=== PATIENT | female | born 2000 | race Caucasian/White ===

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

== ENCOUNTER 2020-01-21 17:21 | Emergency (ER) | payer BC, MEDICAID ==
--- NOTE | 2020-01-21 17:58 | EDM.PDOC ---
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 Denies: Chest Pain (Patient presents for evaluation of left lower abdominal pain she currently is . This would be her second she lost the first at 12 weeks with a miscarriage requiring D&C. Normal menstrual period was October, her last irregular period was November. Scheduled to get a AGRONOMY MANAGER follow-up sometime in the next month. Has noted some nausea more in the morning but has been doing well by eating healthier foods and more frequent smaller meals. No vomiting. No diarrhea, bowels are normal. No burning pain or blood in the urine. No vaginal discharge. No vaginal bleeding. Does have some pain in the urine after intercourse but no painful intercourse. No history of any STD symptoms, same partner. No fevers chills or sweats no coughing or cold symptoms no sore throat no chest pain or breathing problems. Pain is left lower quadrant/pelvic area nonradiating, has caused her to double over with pain earlier today. Lightheadedness or dizziness no fainting spell noted.), Cough, Fever/Chills, Headaches, Shortness of Breath Left Lower Abdomen Pain Score (Numeric/FACES): 7 - Related Data Allergies Allergy/AdvReac Type Severity Reaction Status Date / Time No Known Allergies Allergy Verified 01/21/20 17:37 Home Meds: Home Meds . 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 Psychiatric History: Reports: ADHD, Anxiety, Depression, Panic Attack, PTSD - Past Surgical History Female Surgical History: Reports: D&C Social & Family History - Family History Family Medical History: Noncontributory - Tobacco Use Smoking Status *Q: Former Smoker Used Tobacco, but Quit: Yes Month/Year Tobacco Last Used: 12/2019 - Caffeine Use Caffeine Use: Reports: Soda - Recreational Drug Use Recreational Drug Use: Yes Drug Use in Last 12 Months: No Recreational Drug Type: Reports: Marijuana/Hashish Recreational Drug Use Frequency: Not Used In Over 6 Months - Living Situation & Occupation Living situation: Reports: Single Occupation: Unemployed ED ROS GENERAL - Review of Systems Review Of Systems: See Below Constitutional: Denies: Fever, Chills, Diaphoresis HEENT: Denies: Rhinitis, Throat Pain Respiratory: Denies: Shortness of Breath, Cough Cardiovascular: Denies: Chest Pain, Lightheadedness, Syncope Endocrine: Denies: Fatigue GI/Abdominal: Reports: Abdominal Pain, Decreased Appetite, Nausea. Denies: Constipation, Diarrhea, Vomiting : Denies: Dysuria, Frequency, Hematuria, Urinary Retention Musculoskeletal: Denies: Muscle Pain Skin: Denies: Rash Neurological: Denies: Dizziness, Headache, Numbness, Paresthesia Psychiatric: Reports: No Symptoms Immunologic: Reports: No Symptoms ED EXAM, GI/ABD - Physical Exam Exam: See Below Exam Limited By: No Limitations General Appearance: Alert, WD/WN, No Apparent Distress Head: Atraumatic Respiratory/Chest: No Respiratory Distress, Lungs Clear, Normal Breath Sounds Cardiovascular: Normal Peripheral Pulses, Regular Rate, Rhythm, No Edema GI/Abdominal Exam: Normal Bowel Sounds, Soft, Other (Tenderness noted in the left lower quadrant/left periumbilical and pelvic area. No focal mass noted, no rebound or rigidity noted, no flank pain noted.). No: Distended, Guarding, Rebound Extremities: Normal Inspection, No Pedal Edema Neurological: Alert, Oriented Psychiatric: Normal Affect Skin Exam: Warm, Dry Course - Vital Signs Last Recorded V/S: Last Vital Signs Temp 98.5 F 01/21/20 17:31 Pulse 72 01/21/20 17:31 Resp 16 01/21/20 17:31 BP 112/63 01/21/20 17:31 Pulse Ox 100 01/21/20 17:31 - Orders/Labs/Meds Orders: Active Orders 24 hr Category Date Time Status OB Transvaginal [US] Stat Exams 01/21/20 18:09 Taken ABO/RH TYPE [BBK] Stat Lab 01/21/20 18:25 Received Labs: Laboratory Tests 01/21/20 01/21/20 01/21/20 Range/Units 18:15 18:25 18:25 WBC 9.14 (3.98-10.04) K/mm3 RBC 4.07 (3.98-5.22) M/mm3 Hgb 12.6 (11.2-15.7) gm/dl Hct 38.4 (34.1-44.9) % MCV 94.3 D (79.4-94.8) fl MCH 31.0 (25.6-32.2) pg MCHC 32.8 (32.2-35.5) g/dl RDW Std Deviation 45.4 (36.4-46.3) fL Plt Count 281 (182-369) K/mm3 MPV 9.6 (9.4-12.3) fl Neut % (Auto) 64.4 (34.0-71.1) % Lymph % (Auto) 24.8 (19.3-51.7) % [place] % (Auto) 9.7 (4.7-12.5) % Eos % (Auto) 0.8 (0.7-5.8) Baso % (Auto) 0.2 (0.1-1.2) % Neut # (Auto) 5.88 (1.56-6.13) K/mm3 Lymph # (Auto) 2.27 (1.18-3.74) K/mm3 [place] # (Auto) 0.89 H (0.24-0.36) K/mm3 Eos # (Auto) 0.07 (0.04-0.36) K/mm3 Baso # (Auto) 0.02 (0.01-0.08) K/mm3 Sodium 138 (136-145) mEq/L Potassium 4.0 (3.5-5.1) mEq/L Chloride 104 (98-107) mEq/L Carbon Dioxide 26 (21-32) mEq/L Anion Gap 12.0 (5-15) BUN 10 (7-18) mg/dL Creatinine 0.6 (0.55-1.02) mg/dL Est Cr Clr Drug Dosing 125.27 mL/min Estimated GFR (MDRD) > 60 (>60) mL/min BUN/Creatinine Ratio 16.7 (14-18) Glucose 93 (74-106) mg/dL Calcium 8.9 (8.5-10.1) mg/dL Total Bilirubin 0.2 (0.2-1.0) mg/dL AST 15 (15-37) U/L ALT 34 (14-59) U/L Alkaline Phosphatase 82 (46-116) U/L Total Protein 6.9 (6.4-8.2) g/dl Albumin 3.7 (3.4-5.0) g/dl Globulin 3.2 gm/dL Albumin/Globulin Ratio 1.2 (1-2) Lipase 83 (73-393) U/L HCG, Quant 38417.0 mIU/mL Urine Color Yellow (Yellow) Urine Appearance Clear (Clear) Urine pH 6.0 (5.0-8.0) Ur Specific [place] > or = 1.030 (1.005-1.030) Urine Protein Negative (Negative) Urine Glucose (UA) Negative (Negative) Urine Ketones Negative (Negative) Urine Occult Blood Negative (Negative) Urine Nitrite Negative (Negative) Urine Bilirubin Negative (Negative) Urine Urobilinogen 0.2 (0.2-1.0) Ur Leukocyte Esterase Negative (Negative) Urine RBC 0-5 (0-5) /hpf Urine WBC 0-5 (0-5) /hpf Ur Squamous Epith Cells 10-20 H (0-5) /hpf Urine Bacteria Few (FEW) /hpf Urine Mucus Few (FEW) /hpf - Radiology Interpretation Free Text/Narrative:: multiple cystic and hypoechoic masslike areas throughout the uterus question abnormal type of molar , there is some free fluid noted, there is a sac , unable to see any heart movement are some left adnexal cyst noted complex cyst on the noted. Preliminary ultrasound - Re-Assessments/Exams Free Text/Narrative Re-Assessment/Exam: 01/21/20 18:26 Patient is a SAB 1 presenting with left lower quadrant/left lower pelvic pain. Rule out ectopic , seems less likely diverticulitis pancreatitis , urinary tract infection, renal colic or pyelonephritis. 01/21/20 18:27 01/21/20 18:27 Patient sent for an OB ultrasound, blood work urinalysis blood type quantitative hCG sent. 01/21/20 19:33 Lab evaluation otherwise [place] [address] we will have patient follow-up with PROGRESS WORKER, return precautions given. 01/21/20 19:34 01/21/20 19:48 This the case with Dr. Melendez and is still could be an ectopic based on free fluid however this also may be a missed miscarriage, molar , leaking corpus luteal cyst. He recommends the patient to follow-up in 2 days at the office for recheck beta-hCG and ultrasound. We will send her home with ectopic precautions, return precautions, pelvic rest. Departure - Departure Time of Disposition: 19:49 Disposition: Home, Self-Care 01 Condition: Good Clinical Impression: Pain in pelvis Qualifiers: Weeks of gestation: less than 8 weeks Qualified Code(s): Z3A.01 - Less than 8 weeks gestation of - Discharge Information Instructions: Pelvic Pain, Female, [id number], First Trimester of , [id number], Care, Ectopic , [id number] Referrals: Lorelei Brady PA-C [Primary Care Provider] - 2 Days (Dr. Castro [address] [place] [address] ) Forms: ED Department Discharge, ED Return to Work/School Form Additional Instructions: Avoid any heavy lifting bending or straining, avoid intercourse for the next 2 days. Follow-up with your OB doctor in 2 days, call in the morning for appointment. It is recommended that you have a repeat beta hCG hormone level and a repeat ultrasound. Return to the emergency room however if any increasing pain, lightheadedness, dizziness, shoulder pain, vomiting, fevers, fainting spell, vaginal bleeding worse. Sepsis Event Note - Evaluation Sepsis Screening Result: No Definite Risk - Focused Exam Vital Signs: Vital Signs Temp Pulse Resp BP Pulse Ox 01/21/20 17:31 98.5 F 72 16 112/63 100 Date Exam was Performed: 01/21/20 Time Exam was Performed: 19:33 - My Orders Last 24 Hours: My Active Orders 01/21/20 18:09 OB Transvaginal [US] Stat 01/21/20 18:25 ABO/RH TYPE [BBK] Stat - Assessment/Plan Last 24 Hours: My Active Orders 01/21/20 18:09 OB Transvaginal [US] Stat 01/21/20 18:25 ABO/RH TYPE [BBK] Stat
--- NOTE | 2020-01-21 19:47 | US ---
Obstetrical ultrasound: Multiple real-time images were obtained transvaginally. Comparison: No previous study. Dates: Current ultrasound: JONATHON 09/16/20, gestational age 5 weeks 6 days Single intrauterine gestational sac is seen. Small yolk sac is seen. Minimal pole is noted. No heart activity is seen at this time. Slightly abnormal gestational reaction is seen with multiple small cystic areas. Follicles are seen within the maternal ovaries. There is a moderate amount of free fluid seen within the cul-de-sac. Small cyst is noted within the left ovary believed to be incidental. Measurements: Gestational sac: 1.37 cm - 4 weeks 6 days [place]-rump length: 0.28 cm - 5 weeks 6 days Heart rate: None measured at this time. Impression: 1. Single intrauterine gestational sac. Dates as noted above. 2. No heart activity is seen most likely relating to early gestational age. Follow-up study could be considered in 11 days to further evaluate. 3. Multiple small cystic areas within the gestational reaction which is abnormal. This can be reevaluated 11 days to confirm that gestational reaction becomes more normal in appearance. Diagnostic code #3 Study was dictated in MDT
== END 2020-01-21 20:10 | disposition home or self-care (01) ==
LOC: JD.ED 17:21
DX: O99.89 Other specified diseases and conditions complicating pregnancy, childbirth and the puerperium (principal); R10.2 Pelvic and perineal pain; O99.511 Diseases of the respiratory system complicating pregnancy, first trimester; J45.909 Unspecified asthma, uncomplicated; Z87.891 Personal history of nicotine dependence; Z3A.01 Less than 8 weeks gestation of pregnancy
CPT/HCPCS: 36415; 76817; 76817-26; 80053; 81001; 83690; 84702; 85025; 86900; 86901; 99282; 99284-25

== ENCOUNTER 2020-07-17 20:33 | Emergency (ER) | payer MEDICAID ==
--- NOTE | 2020-07-17 21:03 | EDM.PDOC ---
ED HPI GENERAL MEDICAL PROBLEM - General Chief Complaint: Lower Extremity Injury/Pain Stated Complaint: LEGS SWOLLEN Time Seen by Provider: 07/17/20 20:50 Source of Information: Reports: Patient, RN Notes Reviewed History Limitations: Reports: No Limitations - History of Present Illness INITIAL COMMENTS - FREE TEXT/NARRATIVE: Patient is a 20-year-old female who presents to the ED for the evaluation of her bilateral leg swelling and foot pain. 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 The patient notes that she got home yesterday from [place], she had 2 days of extended car travel 1 with a 6-hour day, and then an 11-hour day. She states that the bottom of her feet hurt quite a bit tonight, and she states she is also been very busy today, she was not sure if that could be part of the problem. She states that she normally has pretty skinny legs, but has appreciated bilateral swelling after the car travel. The patient states that she is having a normal , and not having any issues with her abdomen, or any vaginal cramping or bleeding. She states it is mainly just for the bilateral lower extremity. She is not having any fevers or chills or any cough, she states that she is feeling mildly short of breath, but attributes this to the , she is not having any nausea/vomiting/diarrhea. Patient states she is not a smoker, and she has been drinking more soda than she normally does, and drinking a little less water than normal as well. 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 ED EXAM, GENERAL - Physical Exam Exam: See Below Exam Limited By: No Limitations General Appearance: Alert, WD/WN, No Apparent Distress Respiratory/Chest: No Respiratory Distress, Lungs Clear, Normal Breath Sounds, No Accessory Muscle Use, Chest Non-Tender Cardiovascular: Normal Peripheral Pulses, Regular Rate, Rhythm, No Murmur Peripheral Pulses: 2+: Dorsalis Pedis (L), Dorsalis Pedis (R) Extremities: Normal Inspection, Normal Range of Motion, Normal Capillary Refill, Other (there is no obvious swelling appreciated by myself, but the patient states that her legs are larger than normal for her, as well as her feet. Homans sign negative in both extremities) Neurological: Alert, Oriented, Normal Cognition, No Motor/Sensory Deficits Psychiatric: Normal Affect, Normal Mood Skin Exam: Warm, Dry, Intact, Normal Color, No Rash Course - Vital Signs Last Recorded V/S: Last Vital Signs Temp 97.5 F 07/17/20 20:52 Pulse 81 07/17/20 20:52 Resp 20 07/17/20 20:52 BP 116/74 07/17/20 20:52 Pulse Ox 99 07/17/20 20:52 - Orders/Labs/Meds Orders: Active Orders 24 hr Category Date Time Status Venous Doppler Lwr Ext Bi [US] Stat Exams 07/17/20 21:00 Ordered - Re-Assessments/Exams Free Text/Narrative Re-Assessment/Exam: 07/17/20 21:13 Patient presents to the ED for her bilateral leg swelling. She will get an ultrasound of both legs to evaluate for DVTs. 07/17/20 21:54 The gyroscope technician did state that it does look as if the exam was negative for DVTs. This is most likely peripheral edema, she will be directed to use compression stockings or use Louie wraps to her legs, to help relieve some of the swelling. She will have to raise her legs to try to also relieve some of the swelling. 07/17/20 22:19 The official radiology read has come back, and the ultrasound studies were negative for DVTs at this time. Departure - Departure Time of Disposition: 21:55 Disposition: Home, Self-Care 01 Condition: Good Clinical Impression: Mild peripheral edema, Bilateral leg and foot pain - Discharge Information *PRESCRIPTION DRUG MONITORING PROGRAM REVIEWED*: No *COPY OF PRESCRIPTION DRUG MONITORING REPORT IN PATIENT MIRTHA: No Instructions: Foot Pain Referrals: Supriya Montiel MD [Primary Care Provider] - Forms: ED Department Discharge Additional Instructions: You were evaluated in the ER today for your bilateral foot and leg swelling. Ultrasounds done today demonstrate no sign of any blood clots within your legs. The swelling is most likely due to peripheral edema, which is a collection of fluid in your legs from sitting positions for an extended period of time. In order to remedy this, you should sit with your legs raised, preferably with your toes above your nose to help provide relief from swelling. You may use compression hose, or Louie wraps to your legs, to provide further compression and relief from swelling. Your feet pain might be due just to overuse and standing too much today, along with poor support in your shoes. To remedy this, please try to wear shoes that have a little bit more support, a good rule of thumb is if you can bend the shoe in half, this does not provide enough support to be wearing for prolonged periods of time to provide adequate pain relief in your feet. Follow-up with your GRAIN MILL WORKER at your next scheduled appointment. Please return to the ER at any time if symptoms change or worsen. Sepsis Event Note (ED) - Evaluation Sepsis Screening Result: No Definite Risk - Focused Exam Vital Signs: Vital Signs Temp Pulse Resp BP Pulse Ox 07/17/20 20:52 97.5 F 81 20 116/74 99 - My Orders Last 24 Hours: My Active Orders 07/17/20 21:00 Venous Doppler Lwr Ext Bi [US] Stat - Assessment/Plan Last 24 Hours: My Active Orders 07/17/20 21:00 Venous Doppler Lwr Ext Bi [US] Stat
== END 2020-07-17 22:22 | disposition home or self-care (01) ==
LOC: SUPCPDRO 20:33 → JD.ED 20:33
DX: O99.891 Other specified diseases and conditions complicating pregnancy (principal); M79.672 Pain in left foot; M79.671 Pain in right foot; R60.0 Localized edema; O99.513 Diseases of the respiratory system complicating pregnancy, third trimester; J45.909 Unspecified asthma, uncomplicated; Z3A.30 30 weeks gestation of pregnancy
CPT/HCPCS: 93970; 99282; 99284-25

== ENCOUNTER 2020-09-02 01:57 | Emergency (ER) | payer SELFPAY ==
--- NOTE | 2020-09-02 02:22 | EDM.PDOC ---
ED HPI GENERAL MEDICAL PROBLEM - General Chief Complaint: Upper Extremity Injury/Pain Stated Complaint: wrist pain Time Seen by Provider: 09/02/20 02:09 Source of Information: Reports: Patient History Limitations: Reports: No Limitations - History of Present Illness INITIAL COMMENTS - FREE TEXT/NARRATIVE: Ms. Bishop is a very pleasant 20-year-old woman who now presents the ED with right wrist and proximal hand pain that developed around 23:00 tonight, after she got into bed. She states that the pain is worse if she moves it. She does not recall any injury to the area, but points out some purplish discoloration in the area of concern. She denies any tingling or numbness to her right hand. No prior similar symptoms. The patient did not take any [id number] or home remedies prior to coming to the ED. The patient is 37 weeks gestation. Here in the ED, the patient is found to be hemodynamically stable, afebrile, saturating 96% on room air. Prior to the development of her right wrist/hand pain tonight, the patient denies having a recent fever, chills, sore throat, ear pain, nasal or sinus congestion, cough, dyspnea, chest pain, palpitations, nausea, vomiting, constipation, diarrhea, abdominal pain, urinary symptoms, recent weight gain or weight loss, recent bloody bowel movements or black bowel movements, recent joint aches, headaches, or rashes. The patient's PCP is ISAAK Portillo. Her INT[facility]IVE CARE AMBULANCE PARAMEDIC is Dr. Jailene Guzman. She has not received an influenza vaccine this season, and declined an offer to receive one here today. Right Wrist Pain Score (Numeric/FACES): 4 - Related Data Allergies Allergy/AdvReac Type Severity Reaction Status Date / Time No Known Allergies Allergy Verified 09/02/20 02:07 Home Meds: Home Meds Pnv No.103/Folic/Om3s/Fish Oil [ Gummies] 1 tab PO DAILY 07/17/20 [History] Past Medical History [facility] AMBULANCE PARAMEDIC History: Reports: Therapeutic (x 1) : 2 Psychiatric History: Reports: ADHD (untreated), Anxiety (untreated), Depression (untreated), Panic Attack, PTSD (untreated) - Past Surgical History Female Surgical History: Reports: D&C (x 1) Social & Family History - Family History Family Medical History: No Pertinent Family History - Tobacco Use Tobacco Use Status *Q: Never Tobacco User Second Hand Smoke Exposure: No - Caffeine Use Caffeine Use: Reports: None - Recreational Drug Use Recreational Drug Use: No - Living Situation & Occupation Living situation: Reports: Single Occupation: Unemployed Review of Systems - Review of Systems Review Of Systems: Comprehensive ROS is negative, except as noted in HPI. ED EXAM, GENERAL - Physical Exam Exam: See Below Exam Limited By: No Limitations General Appearance: Alert, WD/WN, No Apparent Distress Extremities: Other (Ecchymosis noted along the midline volar aspect of the patient's right wrist and proximal right hand. The patient denies any tingling or numbness to the right hand. Right hand tissue technician strength is as good as the left. The right hand is just as warm as the left.) Course - Vital Signs Last Recorded V/S: Last Vital Signs Temp 36.3 C 09/02/20 02:04 Pulse 84 09/02/20 02:04 Resp 16 09/02/20 02:04 BP 129/89 09/02/20 02:04 Pulse Ox 96 09/02/20 02:04 - Re-Assessments/Exams Free Text/Narrative Re-Assessment/Exam: 09/02/20 02:14 The patient appears to have a small ecchymosis to the volar aspect of her right wrist and proximal palm. She somehow managed to break a small vein. I recommended ice packs on and off for the next couple of days to help prevent inflammation. She may also take [id number] ibuprofen as needed for discomfort. Departure - Departure Time of Disposition: 02:15 Disposition: Home, Self-Care 01 Condition: Good Clinical Impression: Bruising of wrist - Discharge Information *PRESCRIPTION DRUG MONITORING PROGRAM REVIEWED*: Not Applicable *COPY OF PRESCRIPTION DRUG MONITORING REPORT IN PATIENT MIRTHA: Not Applicable Referrals: Lorelei Brady PA-C [Ordering Only Provider] - Jailene Guzman MD [Physician] - Forms: ED Department Discharge Additional Instructions: You were seen in the emergency room after developing pain to your right wrist and hand. On examination, you appear to have a bruise to the area. We recommend that you apply ice packs on and off over the next few days, to help minimize localized swelling. You may take [id number]-[id number] Tylenol as needed for discomfort. If any other problems, please do not hesitate to return to the ER. Sepsis Event Note (ED) - Evaluation Sepsis Screening Result: No Definite Risk - Focused Exam Vital Signs: Vital Signs Temp Pulse Resp BP Pulse Ox 09/02/20 02:04 36.3 C 84 16 129/89 96
== END 2020-09-02 02:20 | disposition home or self-care (01) ==
LOC: JD.ED 01:57
DX: O9A.213 Injury, poisoning and certain other consequences of external causes complicating pregnancy, third trimester (principal); S60.211A Contusion of right wrist, initial encounter; Z3A.37 37 weeks gestation of pregnancy; X58.XXXA Exposure to other specified factors, initial encounter
CPT/HCPCS: 99283

== ENCOUNTER 2020-09-06 22:43 | Inpatient (IN) | payer MEDICAID ==
[2020-09-06] MEDS ORDERED: Sodium Chloride 0.9% 10 ML Syringe FLUSH PRN (23:42)
[2020-09-06] MEDS ORDERED: Ampicillin 2 GM in Sodium Chloride 0.9% 100 ML IV ONE (23:42)
[2020-09-06] MEDS ORDERED: Nalbuphine 10 MG/1 ML Vial IVPUSH PRN (23:42)
[2020-09-06] MEDS ORDERED: Oxytocin/Lactated Ringers 10 UNIT/1,000 ML BAG IV SCH (23:45)
[2020-09-07] MEDS: Lactated Ringers 1,000 ML IV SCH ×4 (00:35→06:32)
[2020-09-07] MEDS ORDERED: ePHEDrine 50 MG/ML SDV IVPUSH PRN (03:43)
[2020-09-07] MEDS ORDERED: diphenhydrAMINE 50 MG/ML SDV IVPUSH PRN (03:43)
[2020-09-07] MEDS ORDERED: Bupivacaine/fentaNYL/NS 100 ML Bag EPIDUR PRN (03:43)
[2020-09-07] MEDS: Ampicillin 1 GM in Sodium Chloride 0.9% 100 ML IV SCH ×3 (04:29→15:42)
--- NOTE | 2020-09-07 05:25 | PCM.PREANE ---
Preanesthetic Assessment - Procedure Proposed Procedure: Continuous labor epidural - Anesthesia/Transfusion/Family Hx Anesthesia History: Prior Anesthesia Without Reaction Transfusion History: No Prior Transfusion(s) - Review of Systems General: No Symptoms Pulmonary: No Symptoms Cardiovascular: No Symptoms Gastrointestinal: No Symptoms Neurological: No Symptoms Other: Reports: None - Physical Assessment Vital Signs: Last Vital Signs Temp 98.7 F 09/06/20 22:52 Pulse 90 09/06/20 22:52 Resp 18 09/06/20 22:52 BP 136/80 09/06/20 22:52 Pulse Ox 100 09/06/20 22:52 Height: 1.68 m Weight: 66.905 kg ASA Class: 2 Mental Status: Alert & Oriented x3 Airway Class: Mallampati = 1 Dentition: Reports: Normal Dentition Thyro-Mental Finger Breadths: 3 Mouth Opening Finger Breadths: 3 ROM/Head Extension: Full Lungs: Clear to Auscultation, Normal Respiratory Effort Cardiovascular: Regular Rate, Regular Rhythm - Lab Values: Laboratory Last Values WBC 10.84 K/mm3 (3.98-10.04) H 09/06/20 23:55 RBC 3.91 M/mm3 (3.98-5.22) L 09/06/20 23:55 Hgb 11.8 gm/dl (11.2-15.7) 09/06/20 23:55 Hct 35.2 % (34.1-44.9) 09/06/20 23:55 MCV 90.0 fl (79.4-94.8) D 09/06/20 23:55 MCH 30.2 pg (25.6-32.2) 09/06/20 23:55 MCHC 33.5 g/dl (32.2-35.5) 09/06/20 23:55 RDW Std Deviation 44.4 fL (36.4-46.3) 09/06/20 23:55 Plt Count 181 K/mm3 (182-369) L D 09/06/20 23:55 MPV 12.1 fl (9.4-12.3) 09/06/20 23:55 Neut % (Auto) 77.9 % (34.0-71.1) H 09/06/20 23:55 Lymph % (Auto) 15.3 % (19.3-51.7) L 09/06/20 23:55 [place] % (Auto) 6.4 % (4.7-12.5) 09/06/20 23:55 Eos % (Auto) 0.3 (0.7-5.8) L 09/06/20 23:55 Baso % (Auto) 0.1 % (0.1-1.2) 09/06/20 23:55 Neut # (Auto) 8.45 K/mm3 (1.56-6.13) H 09/06/20 23:55 Lymph # (Auto) 1.66 K/mm3 (1.18-3.74) 09/06/20 23:55 [place] # (Auto) 0.69 K/mm3 (0.24-0.36) H 09/06/20 23:55 Eos # (Auto) 0.03 K/mm3 (0.04-0.36) L 09/06/20 23:55 Baso # (Auto) 0.01 K/mm3 (0.01-0.08) 09/06/20 23:55 Membrane Rupture Positive H 09/06/20 23:05 SARS-CoV-2 RNA (TOMMY) Negative (NEGATIVE) 09/06/20 23:58 Blood Type O POSITIVE 09/06/20 23:55 Gel Antibody Screen Negative 09/06/20 23:55 - Allergies Allergies/Adverse Reactions: Allergies Allergy/AdvReac Type Severity Reaction Status Date / Time No Known Allergies Allergy Verified 09/06/20 22:52 - Acknowledgements Anesthesia Type Planned: Epidural Pt an Appropriate Candidate for the Planned Anesthesia: Yes Alternatives and Risks of Anesthesia Discussed w Pt/Guardian: Yes Pt/Guardian Understands and Agrees with Anesthesia Plan: Yes PreAnesthesia Questionnaire - Past Health History Medical/Surgical History: Denies Medical/Surgical History HEENT History: Reports: Otitis Media Respiratory History: Reports: Asthma Other Respiratory History: c/o SOB, is hyperventilating 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: , 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 , Other (See Below) Other OB/BYN History: history of ovarian cysts Psychiatric History: Reports: ADHD, Anxiety, Depression, Panic Attack, PTSD Hematologic History: Reports: Anemia - Past Surgical History HEENT Surgical History: Reports: Oral Surgery Female Surgical History: Reports: D&C - SUBSTANCE USE Tobacco Use Status *Q: Never Tobacco User Second Hand Smoke Exposure: No Recreational Drug Use History: No - HOME MEDS Home Medications: Home Meds Pnv No.103/Folic/Om3s/Fish Oil [ Gummies] 1 tab PO DAILY 07/17/20 [History] - CURRENT (IN HOUSE) MEDS Current Meds: Current Medications Diphenhydramine HCl (Benadryl) 25 mg IVPUSH Q6H PRN PRN Reason: pruritis Ephedrine Sulfate (Ephedrine Sulfate) 5 mg IVPUSH ASDIRECTED PRN PRN Reason: Hypotension Fentanyl (Sublimaze) 100 mcg EPIDUR Q3H PRN PRN Reason: Pain Fentanyl/Bupivacaine HCl (Fentanyl/Bupivacaine/Ns 2 Mcg-0.125% 100 Ml) 100 ml EPIDUR ASDIRECTED PRN PRN Reason: Pain Lactated Ringer's (Ringers, Lactated) 1,000 mls @ 100 mls/hr IV ASDIRECTED BEN Last Admin: 09/07/20 05:11 Dose: 100 mls/hr Documented by: Ampicillin Sodium 1 gm/ Sodium (Chloride) 100 mls @ 200 mls/hr IV Q4H [facility] Last Admin: 09/07/20 04:29 Dose: 200 mls/hr Documented by: Oxytocin/Lactated Ringer's (Pitocin In Lr 10 Units/1,000 Ml) 10 unit in 1,000 mls @ 500 mls/hr IV .CONTINUOUS [facility] Nalbuphine HCl (Nubain) 10 mg IVPUSH Q2H PRN PRN Reason: Pain Sodium Chloride (Saline Flush) 10 ml FLUSH ASDIRECTED PRN PRN Reason: Keep Vein Open Discontinued Medications Ampicillin Sodium 2 gm/ Sodium (Chloride) 100 mls @ 200 mls/hr IV ONETIME ONE Stop: 09/07/20 00:11 Last Admin: 09/07/20 00:35 Dose: 200 mls/hr Documented by:
[2020-09-07] MEDS: fentaNYL 100 MCG/2 ML SDV EPIDUR PRN ×2 (05:27→09:46)
[2020-09-07] MEDS ORDERED: Oxytocin/Lactated Ringers 10 UNIT/1,000 ML BAG IV SCH (07:45)
--- NOTE | 2020-09-07 08:34 | PCM.LDHP ---
L&D History of Present Illness - General Date of Service: 09/07/20 Admit Problem/Dx: Patient Status Order with Admit Dx/Problem 09/06/20 22:52 Patient Status [ADT] Routine 09/06/20 23:42 Patient Status [ADT] Routine Admission Diagnosis/Problem Admission Diagnosis/Problem - History of Present Illness Introduction:: 20 year old at 38w1 here with SROM and contractions. 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 , Other (See Below) Other OB/BYN History: history of ovarian cysts Psychiatric History: Reports: ADHD, Anxiety, Depression, Panic Attack, PTSD Hematologic History: Reports: Anemia - Past Surgical History HEENT Surgical History: Reports: Oral Surgery Female Surgical History: Reports: D&C Social & Family History - Family History Family Medical History: No Pertinent Family History - Tobacco Use Tobacco Use Status *Q: Never Tobacco User Second Hand Smoke Exposure: No - Caffeine Use Caffeine Use: Reports: None - Recreational Drug Use Recreational Drug Use: No - Living Situation & Occupation Living situation: Reports: Single Occupation: Unemployed H&P Review of Systems - Review of Systems: Review Of Systems: See Below General: Reports: No Symptoms HEENT: Reports: No Symptoms Pulmonary: Reports: No Symptoms Cardiovascular: Reports: No Symptoms Gastrointestinal: Reports: No Symptoms Genitourinary: Reports: No Symptoms Musculoskeletal: Reports: No Symptoms Skin: Reports: No Symptoms Psychiatric: Reports: No Symptoms Neurological: Reports: No Symptoms Hematologic/Lymphatic: Reports: No Symptoms Immunologic: Reports: No Symptoms L&D Exam - Exam Exam: See Below - Vital Signs Vital Signs: Last Vital Signs Temp 37.1 C 09/06/20 22:52 Pulse 63 09/07/20 07:30 Resp 18 09/06/20 22:52 BP 133/79 09/07/20 07:30 Pulse Ox 99 09/07/20 05:32 Weight: 66.905 kg - OB Specific Contraction Intensity: Moderate - No Score No Score Cervix Position: Midposition No Score Consistency: Soft No Score Effacement: 51-70% No Score Dilation: 3-4 cm - Exam General: Alert, Oriented HEENT: PERRLA, Conjunctiva Clear, EACs Clear, EOMI, Hearing Intact, Mucosa Moist & [place], Nares Patent, Normal Nasal Septum, Posterior Pharynx Clear, TMs Clear Neck: Supple, Trachea Midline Lungs: Clear to Auscultation, Normal Respiratory Effort Cardiovascular: Regular Rate, Regular Rhythm GI/Abdominal Exam: Normal Bowel Sounds, Soft, Non-Tender, No Organomegaly, No Distention, No Abnormal Bruit, No Mass, Pelvis Stable Back Exam: Normal Inspection, Full Range of Motion Extremities: Normal Inspection, Normal Range of Motion, Non-Tender, No Pedal Edema, Normal Capillary Refill Skin: Warm, Dry, Intact Neurological: Cranial Nerves Intact, Reflexes Equal Bilateral Psychiatric: Alert, Normal Affect, Normal Mood - Patient Data Lab Results Last 24 hrs: Laboratory Results - last 24 hr 09/06/20 09/06/20 09/06/20 Range/Units 23:05 23:55 23:55 WBC 10.84 H (3.98-10.04) K/mm3 RBC 3.91 L (3.98-5.22) M/mm3 Hgb 11.8 (11.2-15.7) gm/dl Hct 35.2 (34.1-44.9) % MCV 90.0 D (79.4-94.8) fl MCH 30.2 (25.6-32.2) pg MCHC 33.5 (32.2-35.5) g/dl RDW Std Deviation 44.4 (36.4-46.3) fL Plt Count 181 L D (182-369) K/mm3 MPV 12.1 (9.4-12.3) fl Neut % (Auto) 77.9 H (34.0-71.1) % Lymph % (Auto) 15.3 L (19.3-51.7) % [place] % (Auto) 6.4 (4.7-12.5) % Eos % (Auto) 0.3 L (0.7-5.8) Baso % (Auto) 0.1 (0.1-1.2) % Neut # (Auto) 8.45 H (1.56-6.13) K/mm3 Lymph # (Auto) 1.66 (1.18-3.74) K/mm3 [place] # (Auto) 0.69 H (0.24-0.36) K/mm3 Eos # (Auto) 0.03 L (0.04-0.36) K/mm3 Baso # (Auto) 0.01 (0.01-0.08) K/mm3 Membrane Rupture Positive H SARS-CoV-2 RNA (TOMMY) (NEGATIVE) Blood Type O POSITIVE Gel Antibody Screen Negative 09/06/20 Range/Units 23:58 WBC (3.98-10.04) K/mm3 RBC (3.98-5.22) M/mm3 Hgb (11.2-15.7) gm/dl Hct (34.1-44.9) % MCV (79.4-94.8) fl MCH (25.6-32.2) pg MCHC (32.2-35.5) g/dl RDW Std Deviation (36.4-46.3) fL Plt Count (182-369) K/mm3 MPV (9.4-12.3) fl Neut % (Auto) (34.0-71.1) % Lymph % (Auto) (19.3-51.7) % [place] % (Auto) (4.7-12.5) % Eos % (Auto) (0.7-5.8) Baso % (Auto) (0.1-1.2) % Neut # (Auto) (1.56-6.13) K/mm3 Lymph # (Auto) (1.18-3.74) K/mm3 [place] # (Auto) (0.24-0.36) K/mm3 Eos # (Auto) (0.04-0.36) K/mm3 Baso # (Auto) (0.01-0.08) K/mm3 Membrane Rupture SARS-CoV-2 RNA (TOMMY) Negative (NEGATIVE) Blood Type Gel Antibody Screen Result Diagrams: 09/06/20 23:55 Problem List Initiated/Reviewed/Updated: Yes Orders Last 24hrs: Active Orders 24 hr Category Date Time Status Patient Status [ADT] Routine ADT 09/06/20 23:42 Active Activity as Tolerated [RC] PFP Care 09/06/20 23:42 Active Communication Order [RC] ASDIRECTED Care 09/06/20 23:42 Active Heart Tones [RC] ASDIRECTED Care 09/06/20 23:42 Active Notify Provider [RC] ASDIRECTED Care 09/07/20 03:43 Active Notify Provider [RC] PFP Care 09/06/20 23:42 Active Notify Provider [RC] PRN Care 09/06/20 23:42 Active Peripheral IV Care [RC] Q2HR Care 09/06/20 23:42 Active Vital Signs [RC] PER UNIT ROUTINE Care 09/06/20 22:52 Active RAPID PLASMA REAGIN,RPR [CHEM] Routine Lab 09/06/20 23:55 Received Ampicillin 1 gm Med 09/07/20 04:00 Active Sodium Chloride 0.9% [Normal Saline] 100 ml IV Q4H Bupivacaine/fentaNYL/NS [fentaNYL/Bupivacaine/NS 2 MCG- Med 09/07/20 03:43 A ctive 0.125% 100 ML] 100 ml EPIDUR ASDIRECTED PRN Lactated Ringers [Ringers, Lactated] 1,000 ml Med 09/06/20 23:45 Active IV ASDIRECTED Nalbuphine [Nubain] Med 09/06/20 23:42 Active 10 mg IVPUSH Q2H PRN Oxytocin/Lactated Ringers [Pitocin in LR 10 Units/1,000 Med 09/06/20 23:45 Active ML] 10 unit in 1,000 ml IV .CONTINUOUS Oxytocin/Lactated Ringers [Pitocin in LR 10 Units/1,000 Med 09/07/20 07:45 Active ML] 10 unit in 1,000 ml IV TITRATE Sodium Chloride 0.9% [Saline Flush] Med 09/06/20 23:42 Active 10 ml FLUSH ASDIRECTED PRN diphenhydrAMINE [Benadryl] Med 09/07/20 03:43 Active 25 mg IVPUSH Q6H PRN ePHEDrine [ePHEDrine sulfate] Med 09/07/20 03:43 Active 5 mg IVPUSH ASDIRECTED PRN fentaNYL [Sublimaze] Med 09/07/20 03:43 Active 100 mcg EPIDUR Q3H PRN Electronic Heart Tones Ext w TOCO [WOMSER] Oth 09/06/20 23:42 Ordered Routine Electronic Heart Tones Internal [WOMSER] Per Unit Oth 09/06/20 23:42 Ordered Routine Peripheral IV Insertion Adult [OM.PC] Routine Oth 09/06/20 23:42 Ordered Resuscitation Status Routine Resus Stat 09/06/20 22:52 Ordered Medication Orders Diphenhydramine HCl (Benadryl) 25 mg IVPUSH Q6H PRN PRN Reason: pruritis Ephedrine Sulfate (Ephedrine Sulfate) 5 mg IVPUSH ASDIRECTED PRN PRN Reason: Hypotension Fentanyl (Sublimaze) 100 mcg EPIDUR Q3H PRN PRN Reason: Pain Last Admin: 09/07/20 05:27 Dose: 100 mcg Documented by: LUIS Fentanyl/Bupivacaine HCl (Fentanyl/Bupivacaine/Ns 2 Mcg-0.125% 100 Ml) 100 ml EPIDUR ASDIRECTED PRN PRN Reason: Pain Last Admin: 09/07/20 05:50 Dose: 100 ml Documented by: LUIS Lactated Ringer's (Ringers, Lactated) 1,000 mls @ 100 mls/hr IV ASDIRECTED [facility] Last Admin: 09/07/20 06:32 Dose: 100 mls/hr Documented by: Infusion: 09/07/20 06:32 Dose: 100 mls/hr Documented by: Admin: 09/07/20 05:11 Dose: 100 mls/hr Documented by: Infusion: 09/07/20 05:11 Dose: 100 mls/hr Documented by: Admin: 09/07/20 03:17 Dose: 100 mls/hr Documented by: Infusion: 09/07/20 03:17 Dose: 100 mls/hr Documented by: Admin: 09/07/20 00:35 Dose: 100 mls/hr Documented by: LUIS Ampicillin Sodium 1 gm/ Sodium (Chloride) 100 mls @ 200 mls/hr IV Q4H [facility] Last Admin: 09/07/20 04:29 Dose: 200 mls/hr Documented by: LUIS Oxytocin/Lactated Ringer's (Pitocin In Lr 10 Units/1,000 Ml) 10 unit in 1,000 mls @ 500 mls/hr IV .CONTINUOUS BEN Last Infusion: 09/07/20 06:33 Dose: 0 mls/hr Documented by: Admin: 09/07/20 06:32 Dose: 500 mls/hr Documented by: LUIS Oxytocin/Lactated Ringer's (Pitocin In Lr 10 Units/1,000 Ml) 10 unit in 1,000 mls @ 12 mls/hr IV TITRATE BEN; Protocol Last Titration: 09/07/20 08:04 Dose: 6 munits/min, 36 mls/hr Documented by: Titration: 09/07/20 07:30 Dose: 4 munits/min, 24 mls/hr Documented by: Admin: 09/07/20 06:32 Dose: 2 munits/min, 12 mls/hr Documented by: JAMIE Nalbuphine HCl (Nubain) 10 mg IVPUSH Q2H PRN PRN Reason: Pain Sodium Chloride (Saline Flush) 10 ml FLUSH ASDIRECTED PRN PRN Reason: Keep Vein Open Assessment/Plan Comment:: Term labor, gbs positive. Pitocin. Anticipate
--- NOTE | 2020-09-07 13:07 | PCM.SN.2 ---
- Free Text/Narrative Note: Stage I - Patient presented in active labor with SROM. Progressed to complete with overall reassuring heart tones. Pitocin augmentation. Epidural for anesthesia. Stage II - of viable female, weight 6#9oz, 8/9 APGARS at 1241. Head delivered in controlled manner over intact perineum - with became im possible to monitor heart rate and ritgen maneuver utilized. 15 second shoulder dystocia resolved with Herson and gentle traction. Audible popping sound heard (suspect right -anterior clavicle). To maternal abdomen. Cord clamped and cut by FOB. Stage III - of intact placenta with calcifications. 3vc. Small right vaginal and left periurethral lacerations. EBL 150.
[2020-09-07] MEDS ORDERED: Hydrocortisone Acetate 25 MG Supp RECTAL PRN (15:55)
[2020-09-07] MEDS ORDERED: Benzocaine/Menthol 20%-0.5% Spray 56 GM Canister TOP PRN (15:55)
[2020-09-07] MEDS ORDERED: Witch Hazel Medicated Pads 40/Jar TOP PRN (15:55)
[2020-09-07] MEDS: Ibuprofen 600 MG Tab PO PRN (21:31)
[2020-09-08] MEDS: Ibuprofen 600 MG Tab PO PRN ×3 (04:28→22:35)
--- NOTE | 2020-09-08 06:57 | PCM48HPAN ---
Post Anesthesia Note - EVALUATION WITHIN 48HRS OF ANESTHETIC Vital Signs in Normal Range: Yes Patient Participated in Evaluation: Yes Respiratory Function Stable: Yes Airway Patent: Yes Cardiovascular Function Stable: Yes Hydration Status Stable: Yes Pain Control Satisfactory: Yes Nausea and Vomiting Control Satisfactory: Yes Mental Status Recovered: Yes Vital Signs: Last Vital Signs Temp 98.1 F 09/08/20 04:09 Pulse 68 09/08/20 04:09 Resp 14 09/08/20 04:09 BP 149/97 H 09/08/20 04:09 Pulse Ox 98 09/08/20 04:09 - COMMENTS/OBSERVATIONS Free Text/Narrative:: Patient is on her day 1. Stated understanding about possible backaches following epidural anesthesia. Mentions having some minor back soreness at this time. Explanation given about importance of avoiding back straining. Denies any headache or lightheadedness at this time. Comfortable now. Ambulating, no difficulty urinating.
--- NOTE | 2020-09-08 08:03 | PCM.PNPP ---
- General Info Date of Service: 09/08/20 Functional Status: Reports: Pain Controlled - Review of Systems General: Reports: No Symptoms HEENT: Reports: No Symptoms Pulmonary: Reports: No Symptoms Cardiovascular: Reports: No Symptoms Gastrointestinal: Reports: No Symptoms Genitourinary: Reports: No Symptoms Musculoskeletal: Reports: No Symptoms Skin: Reports: No Symptoms Neurological: Reports: No Symptoms Psychiatric: Reports: No Symptoms - General Info Date of Service: 09/08/20 - Patient Data Vital Signs - Most Recent: Last Vital Signs Temp 36.7 C 09/08/20 04:09 Pulse 68 09/08/20 04:09 Resp 14 09/08/20 04:09 BP 149/97 H 09/08/20 04:09 Pulse Ox 98 09/08/20 04:09 Weight - Most Recent: 66.905 kg Lab Results - Last 24 Hours: Laboratory Results - last 24 hr 09/06/20 09/07/20 09/07/20 Range/Units 23:55 21:25 21:25 WBC 14.80 H (3.98-10.04) K/mm3 RBC 3.78 L (3.98-5.22) M/mm3 Hgb 11.3 (11.2-15.7) gm/dl Hct 33.9 L (34.1-44.9) % MCV 89.7 (79.4-94.8) fl MCH 29.9 (25.6-32.2) pg MCHC 33.3 (32.2-35.5) g/dl RDW Std Deviation 44.5 (36.4-46.3) fL Plt Count 158 L (182-369) K/mm3 MPV 11.3 (9.4-12.3) fl Neut % (Auto) 81.6 H (34.0-71.1) % Lymph % (Auto) 9.6 L (19.3-51.7) % [place] % (Auto) 8.6 (4.7-12.5) % Eos % (Auto) 0.1 L (0.7-5.8) Baso % (Auto) 0.1 (0.1-1.2) % Neut # (Auto) 12.08 H (1.56-6.13) K/mm3 Lymph # (Auto) 1.42 (1.18-3.74) K/mm3 [place] # (Auto) 1.27 H (0.24-0.36) K/mm3 Eos # (Auto) 0.01 L (0.04-0.36) K/mm3 Baso # (Auto) 0.02 (0.01-0.08) K/mm3 Manual Slide Review Abnormal smear BUN 7 (7-18) mg/dL Creatinine 0.6 (0.55-1.02) mg/dL Est Cr Clr Drug Dosing 140.01 mL/min Estimated GFR (MDRD) > 60 (>60) mL/min Uric Acid 4.8 (2.6-6.0) mg/dL AST 23 (15-37) U/L ALT 12 L (14-59) U/L Lactate Dehydrogenase 213 (81-234) U/L RPR Non-reactive (NONREACTIVE) Med Orders - Current: Current Medications Benzocaine/Menthol (Dermoplast Pain Relief [place]) 0 gm TOP ASDIRECTED PRN PRN Reason: Perineal Comfort Measure Last Admin: 09/07/20 17:07 Dose: 1 can Documented by: Hydrocortisone Acetate (Anucort-Hc) 25 mg RECTAL BID PRN PRN Reason: Hemorrhoid pain Ibuprofen (Motrin) 600 mg PO Q6H PRN PRN Reason: Pain Last Admin: 09/08/20 04:28 Dose: 600 mg Documented by: Kyle Esquivel (Jorge) 1 pad TOP ASDIRECTED PRN PRN Reason: Pain Last Admin: 09/07/20 17:07 Dose: 1 container Documented by: Discontinued Medications Diphenhydramine HCl (Benadryl) 25 mg IVPUSH Q6H PRN PRN Reason: pruritis Ephedrine Sulfate (Ephedrine Sulfate) 5 mg IVPUSH ASDIRECTED PRN PRN Reason: Hypotension Fentanyl (Sublimaze) 100 mcg EPIDUR Q3H PRN PRN Reason: Pain Last Admin: 09/07/20 09:46 Dose: 100 mcg Documented by: Fentanyl/Bupivacaine HCl (Fentanyl/Bupivacaine/Ns 2 Mcg-0.125% 100 Ml) 100 ml EPIDUR ASDIRECTED PRN PRN Reason: Pain Last Admin: 09/07/20 05:50 Dose: 100 ml Documented by: Lactated Ringer's (Ringers, Lactated) 1,000 mls @ 100 mls/hr IV ASDIRECTED BEN Last Admin: 09/07/20 06:32 Dose: 100 mls/hr Documented by: Ampicillin Sodium 2 gm/ Sodium (Chloride) 100 mls @ 200 mls/hr IV ONETIME ONE Stop: 09/07/20 00:11 Last Admin: 09/07/20 00:35 Dose: 200 mls/hr Documented by: Ampicillin Sodium 1 gm/ Sodium (Chloride) 100 mls @ 200 mls/hr IV Q4H BEN Last Admin: 09/07/20 15:42 Dose: Not Given Documented by: Oxytocin/Lactated Ringer's (Pitocin In Lr 10 Units/1,000 Ml) 10 unit in 1,000 mls @ 500 mls/hr IV .CONTINUOUS BEN Oxytocin/Lactated Ringer's (Pitocin In Lr 10 Units/1,000 Ml) 10 unit in 1,000 mls @ 12 mls/hr IV TITRATE BEN; Protocol Last Titration: 09/07/20 13:30 Dose: 41.67 munits/min, 250 mls/hr Documented by: Nalbuphine HCl (Nubain) 10 mg IVPUSH Q2H PRN PRN Reason: Pain Sodium Chloride (Saline Flush) 10 ml FLUSH ASDIRECTED PRN PRN Reason: Keep Vein Open - Infant Interaction Support Person: Significant Other - Recovery Exam Fundal Tone: Firm Fundal Level: At Umbilicus Fundal Placement: Midline Lochia Amount: Moderate Lochia Color: Rubra/Red Perineum Description: Edematous Episiotomy/Laceration: Approximated Bladder Status: Voiding Urinary Elimination: Voided - Exam General: Alert, Oriented HEENT: Pupils Equal Neck: Supple Lungs: Clear to Auscultation, Normal Respiratory Effort Cardiovascular: Regular Rate, Regular Rhythm GI/Abdominal Exam: Normal Bowel Sounds, Soft, Non-Tender, No Organomegaly, No Distention, No Abnormal Bruit, No Mass, Pelvis Stable Extremities: Normal Inspection, Normal Range of Motion, Non-Tender, No Pedal Edema, Normal Capillary Refill Neurological: No New Focal Deficit Psy/Mental Status: Alert, Normal Affect, Normal Mood - Problem List Review Problem List Initiated/Reviewed/Updated: Yes - My Orders Last 24 Hours: My Active Orders 09/07/20 15:55 Benzocaine/Menthol [Dermoplast Pain Relief [place]] See Dose Instructions TOP ASDIRECTED PRN Hydrocortisone Acetate [Anucort-HC] 25 mg RECTAL BID PRN witch Cam [Tucks] 1 pad TOP ASDIRECTED PRN Heat Therapy [OM.PC] PRN 09/07/20 15:55 Activity as Tolerated [RC] PER UNIT ROUTINE Vital Signs [RC] 03,09,15,21 Assess Lochia [WOMSER] Per Unit Routine Assess Uterine Involution [WOMSER] Per Unit Routine Breast Pump [WOMSER] Per Unit Routine Medication Administration Instruction [OM.PC] Routine Perineal Care [OM.PC] Per Unit Routine Sitz Bath [OM.PC] Per Unit Routine 09/07/20 21:11 PIH Panel [OM.PC] Stat 09/07/20 21:12 Ibuprofen [Motrin] 600 mg PO Q6H PRN 09/08/20 Breakfast Regular Diet [DIET] 09/08/20 15:55 Heat Therapy [OM.PC] PRN - Plan Plan:: Term labor, gbs positive. Pitocin. Anticipate
--- NOTE | 2020-09-09 06:06 | PCM.DCSUM1 ---
Discharge Summary - Hospital Course Diagnosis: Stroke: No - Discharge Data Discharge Date: 09/09/20 Discharge Disposition: Home, Self-Care 01 Condition: Good - Referral to Home Health Primary Care Physician: Jailene Guzman MD - Patient Instructions Diet: Usual Diet as Tolerated Activity: No Strenuous Activities Driving: May Drive Today Showering/Bathing: May Shower Notify Provider of: Fever, Increased Pain, Swelling and Redness, Drainage, Nause a and/or Vomiting - Discharge Plan *PRESCRIPTION DRUG MONITORING PROGRAM REVIEWED*: No *COPY OF PRESCRIPTION DRUG MONITORING REPORT IN PATIENT MIRTHA: No Home Medications: Home Meds Pnv No.103/Folic/Om3s/Fish Oil [ Gummies] 1 tab PO DAILY 07/17/20 [History] Referrals: Supriya Montiel MD [Physician] - - Discharge Summary/Plan Comment DC Time >30 min.: No - General Info Date of Service: 09/09/20 Functional Status: Reports: Pain Controlled - Review of Systems General: Reports: No Symptoms HEENT: Reports: No Symptoms Pulmonary: Reports: No Symptoms Cardiovascular: Reports: No Symptoms Gastrointestinal: Reports: No Symptoms Genitourinary: Reports: No Symptoms Musculoskeletal: Reports: No Symptoms Skin: Reports: No Symptoms Neurological: Reports: No Symptoms Psychiatric: Reports: No Symptoms - Patient Data Vitals - Most Recent: Last Vital Signs Temp 36.8 C 09/09/20 03:24 Pulse 77 09/09/20 03:24 Resp 15 09/09/20 03:24 BP 145/76 H 09/09/20 03:24 Pulse Ox 100 09/09/20 03:24 Weight - Most Recent: 66.905 kg Med Orders - Current: Current Medications Benzocaine/Menthol (Dermoplast Pain Relief [place]) 0 gm TOP ASDIRECTED PRN PRN Reason: Perineal Comfort Measure Last Admin: 09/07/20 17:07 Dose: 1 can Documented by: Hydrocortisone Acetate (Anucort-Hc) 25 mg RECTAL BID PRN PRN Reason: Hemorrhoid pain Ibuprofen (Motrin) 600 mg PO Q6H PRN PRN Reason: Pain Last Admin: 09/08/20 22:35 Dose: 600 mg Documented by: Kyle Canales) 1 pad TOP ASDIRECTED PRN PRN Reason: Pain Last Admin: 09/07/20 17:07 Dose: 1 container Documented by: Discontinued Medications Diphenhydramine HCl (Benadryl) 25 mg IVPUSH Q6H PRN PRN Reason: pruritis Ephedrine Sulfate (Ephedrine Sulfate) 5 mg IVPUSH ASDIRECTED PRN PRN Reason: Hypotension Fentanyl (Sublimaze) 100 mcg EPIDUR Q3H PRN PRN Reason: Pain Last Admin: 09/07/20 09:46 Dose: 100 mcg Documented by: Fentanyl/Bupivacaine HCl (Fentanyl/Bupivacaine/Ns 2 Mcg-0.125% 100 Ml) 100 ml EPIDUR ASDIRECTED PRN PRN Reason: Pain Last Admin: 09/07/20 05:50 Dose: 100 ml Documented by: Lactated Ringer's (Ringers, Lactated) 1,000 mls @ 100 mls/hr IV ASDIRECTED BEN Last Admin: 09/07/20 06:32 Dose: 100 mls/hr Documented by: Ampicillin Sodium 2 gm/ Sodium (Chloride) 100 mls @ 200 mls/hr IV ONETIME ONE Stop: 09/07/20 00:11 Last Admin: 09/07/20 00:35 Dose: 200 mls/hr Documented by: Ampicillin Sodium 1 gm/ Sodium (Chloride) 100 mls @ 200 mls/hr IV Q4H BEN Last Admin: 09/07/20 15:42 Dose: Not Given Documented by: Oxytocin/Lactated Ringer's (Pitocin In Lr 10 Units/1,000 Ml) 10 unit in 1,000 mls @ 500 mls/hr IV .CONTINUOUS BEN Oxytocin/Lactated Ringer's (Pitocin In Lr 10 Units/1,000 Ml) 10 unit in 1,000 mls @ 12 mls/hr IV TITRATE BEN; Protocol Last Titration: 09/07/20 13:30 Dose: 41.67 munits/min, 250 mls/hr Documented by: Nalbuphine HCl (Nubain) 10 mg IVPUSH Q2H PRN PRN Reason: Pain Sodium Chloride (Saline Flush) 10 ml FLUSH ASDIRECTED PRN PRN Reason: Keep Vein Open - Exam General: Reports: Alert, Oriented HEENT: Reports: Pupils Equal, Pupils Reactive, EOMI, Mucous Membr. Moist/[place] Neck: Reports: Supple Lungs: Reports: Clear to Auscultation, Normal Respiratory Effort Cardiovascular: Reports: Regular Rate, Regular Rhythm GI/Abdominal Exam: Normal Bowel Sounds, Soft, Non-Tender, No Organomegaly, No Distention Rectal (Female) Exam: Normal Exam, Normal Rectal Tone Back Exam: Reports: Normal Inspection, Full Range of Motion Extremities: Normal Inspection, Normal Range of Motion, Non-Tender, No Pedal Edema, Normal Capillary Refill Skin: Reports: Warm, Dry, Intact Wound/Incisions: Reports: Healing Well Neurological: Reports: No New Focal Deficit Psy/Mental Status: Reports: Alert, Normal Affect, Normal Mood
[2020-09-09] MEDS: Ibuprofen 600 MG Tab PO PRN ×2 (08:01→15:02)
== END 2020-09-09 15:30 | disposition home or self-care (01) | DRG 807 ==
LOC: JD.OB 22:43 → JD.OBCHECK 22:43 → JD.OB 23:42 → OBSVTOIN 09-07 12:41 → JD.OB 09-07 12:42
PROVIDERS: ADMIT Obstetrics & Gynecology; ATTEND Obstetrics & Gynecology
PROC: 10E0XZZ Delivery of Products of Conception, External Approach (ICD-10-PCS; principal; 2020-09-07)
PROC: 3E0R3BZ Introduction of Anesthetic Agent into Spinal Canal, Percutaneous Approach (ICD-10-PCS; 2020-09-07)
PROC: 00HU33Z Insertion of Infusion Device into Spinal Canal, Percutaneous Approach (ICD-10-PCS; 2020-09-07)
DX: O99.824 Streptococcus B carrier state complicating childbirth (principal); Z37.0 Single live birth; O99.02 Anemia complicating childbirth; D64.9 Anemia, unspecified; O99.344 Other mental disorders complicating childbirth; F41.8 Other specified anxiety disorders; Z3A.38 38 weeks gestation of pregnancy; Z20.828 Contact with and (suspected) exposure to other viral communicable diseases; O66.0 Obstructed labor due to shoulder dystocia
CPT/HCPCS: 36415; 51702; 59025; 59409; 82565; 83615; 84112; 84450; 84460; 84520; 84550; 85025; 86592; 86850; 86900; 86901; A9270-GY; J0290; J2590; J3010; J7050; J7120; U0002

== ENCOUNTER 2020-09-12 20:46 | Emergency (ER) | payer MEDICAID ==
--- NOTE | 2020-09-12 21:46 | EDM.PDOC ---
ED HPI GENERAL MEDICAL PROBLEM - General Chief Complaint: Abdominal Pain Stated Complaint: stomach pain,dizzy,headache 5days postpardum Time Seen by Provider: 09/12/20 20:48 Source of Information: Reports: Patient History Limitations: Reports: No Limitations - History of Present Illness INITIAL COMMENTS - FREE TEXT/NARRATIVE: This is a 20-year-old female. She is 5 days vaginal delivery with no complications. Her milk came into her breast a couple days ago and they are somewhat engorged and painful. This afternoon she was up walking around and she had sudden onset of cloudiness to her head and dizziness or lightheadedness with some nausea but no vomiting. She had a little bit of chills and sweating as well and her stomach felt very uneasy. Due to this she comes to the clinic for evaluation. She denies any fever cough congestion or sore throat. She says laying down she does feel better and that stomach uneasiness is going away. She indicates this was not a panic attack. She denies any recent problems or illnesses. She does pump her breast after she feeds her baby because there is a large amount of milk still in her breasts. She indicates she has no urinary symptoms. She does have vaginal bleeding but there is nothing unusual about it and there is no abnormal smell. She does not have lower abdominal tenderness. - Related Data Allergies Allergy/AdvReac Type Severity Reaction Status Date / Time No Known Allergies Allergy Verified 09/06/20 22:52 Home Meds: Home Meds . 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 , Other (See Below) Other MANIFOLD BUILDER History: history of ovarian cysts Psychiatric History: Reports: ADHD, Anxiety, Depression, Panic Attack, PTSD Hematologic History: Reports: Anemia - Past Surgical History HEENT Surgical History: Reports: Oral Surgery Female Surgical History: Reports: D&C Social & Family History - Family History Family Medical History: No Pertinent Family History - Tobacco Use Tobacco Use Status *Q: Never Tobacco User - Caffeine Use Caffeine Use: Reports: Soda - Recreational Drug Use Other Recreational Drug Type: last drug usage 3 yrs ago - Living Situation & Occupation Living situation: Reports: Single Occupation: Unemployed ED ROS GENERAL - Review of Systems Review Of Systems: See Below Constitutional: Reports: Chills, Diaphoresis HEENT: Reports: No Symptoms Respiratory: Denies: Shortness of Breath, Cough Cardiovascular: Denies: Chest Pain Endocrine: Reports: No Symptoms GI/Abdominal: Reports: Nausea, Other (Abdominal uneasiness). Denies: Vomiting : Denies: Discharge, Dysuria Musculoskeletal: Reports: No Symptoms Skin: Reports: No Symptoms Neurological: Reports: No Symptoms Psychiatric: Reports: Anxiety Hematologic/Lymphatic: Reports: No Symptoms ED EXAM, GI/ABD - Physical Exam Exam: See Below Exam Limited By: No Limitations General Appearance: Alert, WD/WN, No Apparent Distress Eyes: Bilateral: Normal Appearance Ears: Normal External Exam Throat/Mouth: Normal Lips, Normal Voice, No Airway Compromise Head: Normocephalic Neck: Supple Respiratory/Chest: No Respiratory Distress, Lungs Clear, Normal Breath Sounds Cardiovascular: Regular Rate, Rhythm, No Murmur GI/Abdominal Exam: Soft, Other (Significant tenderness on palpation of the upper abdomen or the lower abdomen or the suprapubic area. Bowel sounds are positive) (Female) Exam: Other (Exam does not reveal any obvious mastitis or inflammation of the breast. They are rather engorged with milk and that makes him very tender. There is no evidence of mastitis noted.) Back Exam: Full Range of Motion Extremities: Normal Inspection, Normal Range of Motion Neurological: Alert, Oriented Psychiatric: Normal Affect, Normal Mood Skin Exam: Warm, Dry Course - Vital Signs Last Recorded V/S: Last Vital Signs Temp 98.4 F 09/12/20 21:09 Pulse 79 09/12/20 21:09 Resp 20 09/12/20 21:09 BP 137/97 H 09/12/20 21:09 Pulse Ox 98 09/12/20 21:09 Orthostatic Blood Pressure [ 136/86 Standing] Orthostatic Blood Pressure [ 138/93 Sitting] Orthostatic Blood Pressure [ 142/100 Supine] - Orders/Labs/Meds Orders: Active Orders 24 hr Category Date Time Status Orthostatic Vital Signs [RC] ASDIRECTED Care 09/12/20 21:39 Active Labs: Laboratory Tests 09/12/20 09/12/20 09/12/20 Range/Units 21:50 21:50 21:55 WBC 8.70 (3.98-10.04) K/mm3 RBC 4.03 (3.98-5.22) M/mm3 Hgb 12.1 (11.2-15.7) gm/dl Hct 36.5 (34.1-44.9) % MCV 90.6 (79.4-94.8) fl MCH 30.0 (25.6-32.2) pg MCHC 33.2 (32.2-35.5) g/dl RDW Std Deviation 43.8 (36.4-46.3) fL Plt Count 266 D (182-369) K/mm3 MPV 10.4 (9.4-12.3) fl Neut % (Auto) 73.0 H (34.0-71.1) % Lymph % (Auto) 18.4 L (19.3-51.7) % [place] % (Auto) 5.6 (4.7-12.5) % Eos % (Auto) 2.6 (0.7-5.8) Baso % (Auto) 0.2 (0.1-1.2) % Neut # (Auto) 6.34 H (1.56-6.13) K/mm3 Lymph # (Auto) 1.60 (1.18-3.74) K/mm3 [place] # (Auto) 0.49 H (0.24-0.36) K/mm3 Eos # (Auto) 0.23 (0.04-0.36) K/mm3 Baso # (Auto) 0.02 (0.01-0.08) K/mm3 Sodium 139 (136-145) mEq/L Potassium 3.7 (3.5-5.1) mEq/L Chloride 105 (98-107) mEq/L Carbon Dioxide 24 (21-32) mEq/L Anion Gap 13.7 (5-15) BUN 12 (7-18) mg/dL Creatinine 0.8 (0.55-1.02) mg/dL Est Cr Clr Drug Dosing TNP Estimated GFR (MDRD) > 60 (>60) mL/min BUN/Creatinine Ratio 15.0 (14-18) Glucose 85 (74-106) mg/dL Calcium 9.0 (8.5-10.1) mg/dL Total Bilirubin 0.5 (0.2-1.0) mg/dL AST 15 (15-37) U/L ALT 21 (14-59) U/L Alkaline Phosphatase 108 (46-116) U/L Total Protein 6.9 (6.4-8.2) g/dl Albumin 2.9 L (3.4-5.0) g/dl Globulin 4.0 gm/dL Albumin/Globulin Ratio 0.7 L (1-2) Urine Color Yellow (Yellow) Urine Appearance Clear (Clear) Urine pH 6.5 (5.0-8.0) Ur Specific [place] 1.015 (1.005-1.030) Urine Protein Negative (Negative) Urine Glucose (UA) Negative (Negative) Urine Ketones Negative (Negative) Urine Occult Blood 3+ H (Negative) Urine Nitrite Negative (Negative) Urine Bilirubin Negative (Negative) Urine Urobilinogen 1.0 (0.2-1.0) Ur Leukocyte Esterase 2+ H (Negative) Urine RBC 5-10 H (0-5) /hpf Urine WBC 5-10 H (0-5) /hpf Ur Squamous Epith Cells 0-5 (0-5) /hpf Urine Bacteria Rare (FEW) /hpf Urine Mucus Rare (FEW) /hpf - Re-Assessments/Exams Free Text/Narrative Re-Assessment/Exam: 09/12/20 22:35 Spoke to the patient regarding her normal CBC chemistry panel and normal urine for . Departure - Departure Time of Disposition: 22:35 Disposition: Home, Self-Care 01 Condition: Good Clinical Impression: Engorgement of breast associated with childbirth, , Breast pain, Light-headed feeling, Nausea - Discharge Information *PRESCRIPTION DRUG MONITORING PROGRAM REVIEWED*: Not Applicable *COPY OF PRESCRIPTION DRUG MONITORING REPORT IN PATIENT MIRTHA: Not Applicable Instructions: Breast Engorgement, and Self-Care, [id number] Referrals: Lorelei Brady PA-C [Primary Care Provider] - Forms: ED Department Discharge Additional Instructions: You were seen because your breasts were very engorged with milk and painful, this certainly could account for some of your symptoms of lightheadedness and nausea make sure that after you feed the baby pump your breast until they are engorged and without pain, follow-up with your OB doctor as scheduled, watch for evidence of mastitis that we talked about, recheck the ER if needed. Sepsis Event Note (ED) - Evaluation Sepsis Screening Result: No Definite Risk - Focused Exam Vital Signs: Vital Signs Temp Pulse Resp BP Pulse Ox 09/12/20 21:09 98.4 F 79 20 137/97 H 98 - My Orders Last 24 Hours: My Active Orders 09/12/20 21:39 Orthostatic Vital Signs [RC] ASDIRECTED - Assessment/Plan Last 24 Hours: My Active Orders 09/12/20 21:39 Orthostatic Vital Signs [RC] ASDIRECTED
== END 2020-09-12 22:45 | disposition home or self-care (01) ==
LOC: JD.ED 20:46
DX: O92.29 Other disorders of breast associated with pregnancy and the puerperium (principal); O90.89 Other complications of the puerperium, not elsewhere classified; R42 Dizziness and giddiness; R11.0 Nausea; O99.53 Diseases of the respiratory system complicating the puerperium; J45.909 Unspecified asthma, uncomplicated
CPT/HCPCS: 36415; 80053; 81001; 85025; 99282; 99283

== ENCOUNTER 2020-09-21 07:17 | Emergency (ER) | payer MEDICAID ==
[2020-09-21] MEDS ORDERED: Cephalexin 500 MG Cap PO ONE (07:50)
--- NOTE | 2020-09-21 07:57 | EDM.PDOC ---
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 She is 2 weeks post . She noticed some redness at the base of the right nipple with tenderness and also some pain to the left lateral breast. This has been going on for a couple of days. She has no fever or chills. Onset: Gradual Duration: Day(s): Location: Reports: Other (bilateral breasts) Quality: Reports: Sharp Severity: Moderate Improves with: Reports: None Worsens with: Reports: None Associated Symptoms: Reports: No Other Symptoms Right Breast Pain Score (Numeric/FACES): 5 - Related Data Allergies Allergy/AdvReac Type Severity Reaction Status Date / Time No Known Allergies Allergy Verified 09/21/20 07:26 Home Meds: Home Meds cephALEXin [Keflex] 500 mg PO QID #40 capsule 09/21/20 [Rx] Past Medical History - Past Health History Medical/Surgical History: Denies Medical/Surgical History HEENT History: Reports: Otitis Media Respiratory History: Reports: Asthma Other Respiratory History: c/o SOB, is hyperventilating BOROUGH COORDINATOR History: Reports: , Spontaneous , Other (See Below) Other BOROUGH 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 History: history of ovarian cysts Psychiatric History: Reports: ADHD, Anxiety, Depression, Panic Attack, PTSD Hematologic History: Reports: Anemia - Past Surgical History HEENT Surgical History: Reports: Oral Surgery Female Surgical History: Reports: D&C Social & Family History - Family History Family Medical History: No Pertinent Family History - Tobacco Use Tobacco Use Status *Q: Never Tobacco User - Caffeine Use Caffeine Use: Reports: Soda - Living Situation & Occupation Living situation: Reports: Single Occupation: Unemployed ED ROS GENERAL - Review of Systems Review Of Systems: See Below Constitutional: Reports: No Symptoms HEENT: Reports: No Symptoms Respiratory: Reports: No Symptoms Cardiovascular: Reports: No Symptoms Endocrine: Reports: No Symptoms GI/Abdominal: Reports: No Symptoms : Reports: No Symptoms Musculoskeletal: Reports: No Symptoms Skin: Reports: Other (Bilateral breast pain) ED EXAM, GI/ABD - Physical Exam Exam: See Below Exam Limited By: No Limitations General Appearance: Alert, No Apparent Distress Ears: Normal External Exam Nose: Normal Inspection Head: Atraumatic, Normocephalic Neck: Normal Inspection Respiratory/Chest: No Respiratory Distress Skin Exam: Other (erythema and small area of edema to the base of the right nipple. No erythema or edema to the left breast. Tender area is noted.) Course - Vital Signs Last Recorded V/S: Last Vital Signs Temp 98.1 F 09/21/20 07:23 Pulse 89 09/21/20 07:23 Resp 16 09/21/20 07:23 BP 115/98 H 09/21/20 07:23 Pulse Ox 98 09/21/20 07:23 - Orders/Labs/Meds Orders: Active Orders 24 hr Category Date Time Status cephALEXin [Keflex] Med 09/21/20 07:50 Once 500 mg PO ONETIME ONE - Re-Assessments/Exams Free Text/Narrative Re-Assessment/Exam: 09/21/20 07:54 The patient was examined with my nurse Violetta in the room. There appears to be a lesion to the right nipple. This could just be an abrasion to that area but it could also be the start of mastitis. I feel it is important to start her on an antibiotic. Departure - Departure Time of Disposition: 07:55 Disposition: Home, Self-Care 01 Condition: Good Clinical Impression: Mastitis - Discharge Information *PRESCRIPTION DRUG MONITORING PROGRAM REVIEWED*: Not Applicable *COPY OF PRESCRIPTION DRUG MONITORING REPORT IN PATIENT MIRTHA: Not Applicable Prescriptions: cephALEXin [Keflex] 500 mg PO QID #40 capsule Referrals: Lorelei Brady PA-C [Primary Care Provider] - 1 Week Additional Instructions: Continue to breast feed and pump like normal. Take the keflex 4 times per day for 10 days. Take tylenol or motrin for the pain. Put warm compresses on each breast 3 times per day for a couple of days. Please return if you are worse. Sepsis Event Note (ED) - Evaluation Sepsis Screening Result: No Definite Risk - Focused Exam Vital Signs: Vital Signs Temp Pulse Resp BP Pulse Ox 09/21/20 07:23 98.1 F 89 16 115/98 H 98 - My Orders Last 24 Hours: My Active Orders 09/21/20 07:50 cephALEXin [Keflex] 500 mg PO ONETIME ONE - Assessment/Plan Last 24 Hours: My Active Orders 09/21/20 07:50 cephALEXin [Keflex] 500 mg PO ONETIME ONE
== END 2020-09-21 08:05 | disposition home or self-care (01) ==
LOC: JD.ED 07:17
DX: O91.22 Nonpurulent mastitis associated with the puerperium (principal); O99.53 Diseases of the respiratory system complicating the puerperium; J45.909 Unspecified asthma, uncomplicated
CPT/HCPCS: 99283; A9270

== ENCOUNTER 2020-11-23 07:36 | Emergency (ER) | payer MEDICAID ==
--- NOTE | 2020-11-23 08:12 | EDM.PDOC ---
ED HPI GENERAL MEDICAL PROBLEM - General Chief Complaint: EQUIPMENT LEAD Problem Stated Complaint: POSS TAMPON STUCK Time Seen by Provider: 11/23/20 08:11 - History of Present Illness INITIAL COMMENTS - FREE TEXT/NARRATIVE: 20-year-old female presents the emergency room with some gynecologic concerns. Patient was in the shower the other day and is uncertain if her tampon came out. At this time she thinks she might feel 1 in her but cannot reach it to get it out. Patient denies any vaginal discharge that is abnormal and she is not any fevers or chills. The patient started thinking about this last night when she had a mild upset stomach. This does not get any worse not associated with any nausea or vomiting. No diarrhea no constipation. The patient has not had any urinary symptoms no burning or frequency with urination. - Related Data Allergies Allergy/AdvReac Type Severity Reaction Status Date / Time No Known Allergies Allergy Verified 11/23/20 07:45 Home Meds: Home Meds cephALEXin [Keflex] 500 mg PO QID #40 capsule 09/21/20 [Rx] Past Medical History - Past Health History Medical/Surgical History: Denies Medical/Surgical History HEENT History: Reports: Otitis Media Respiratory History: Reports: Asthma Other Respiratory History: c/o SOB, is hyperventilating EQUIPMENT LEAD History: Reports: , Spontaneous , Other (See Below) Other EQUIPMENT LEAD History: history of ovarian cysts Psychiatric History: Reports: ADHD, Anxiety, Depression, Panic Attack, PTSD Hematologic History: Reports: Anemia - Past Surgical History HEENT Surgical History: Reports: Oral Surgery Female Surgical History: Reports: D&C Social & Family History - Family History Family Medical History: No Pertinent Family History - Tobacco Use Tobacco Use Status *Q: Never Tobacco User - Caffeine Use Caffeine Use: Reports: Soda - Recreational Drug Use Recreational Drug Use: No - Living Situation & Occupation Living situation: Reports: Single Occupation: Unemployed ED ROS GENERAL - Review of Systems Review Of Systems: See Below Constitutional: Reports: No Symptoms HEENT: Reports: No Symptoms Respiratory: Reports: No Symptoms Cardiovascular: Reports: No Symptoms GI/Abdominal: Reports: Other (She has had a vague upset stomach). Denies: Constipation, Diarrhea, Nausea, Vomiting : Reports: No Symptoms Musculoskeletal: Reports: No Symptoms ED EXAM, GENERAL - Physical Exam Exam: See Below Exam Limited By: No Limitations General Appearance: Alert, No Apparent Distress Head: Atraumatic, Normocephalic Neck: Normal Inspection, Supple, Non-Tender, Full Range of Motion. No: Lymphadenopathy (L), Lymphadenopathy (R) Respiratory/Chest: No Respiratory Distress, Lungs Clear, Normal Breath Sounds Cardiovascular: Normal Peripheral Pulses, Regular Rate, Rhythm, No Edema GI/Abdominal: Normal Bowel Sounds, Soft, Non-Tender Course - Vital Signs Last Recorded V/S: Last Vital Signs Temp 36.0 C L 11/23/20 07:45 Pulse 94 11/23/20 07:45 Resp 18 11/23/20 07:45 BP 134/91 H 11/23/20 07:45 Pulse Ox 99 11/23/20 07:45 - Re-Assessments/Exams Free Text/Narrative Re-Assessment/Exam: 11/23/20 09:10 Patient comes the emergency room for evaluation to see if her tampon is stuck in the vagina. After thorough examination this is found not to be the case the patient feels much better and is assured. Departure - Departure Time of Disposition: 09:11 Disposition: Home, Self-Care 01 Clinical Impression: No active obstetric or gynecological problems - Discharge Information Referrals: Lorelei Brady, ALANNA [Primary Care Provider] - Forms: ED Department Discharge Additional Instructions: Return to the emergency room with any questions problems or concerning symptoms. Follow-up in the clinic as needed. Sepsis Event Note (ED) - Evaluation Sepsis Screening Result: No Definite Risk - Focused Exam Vital Signs: Vital Signs Temp Pulse Resp BP Pulse Ox 11/23/20 07:45 36.0 C L 94 18 134/91 H 99
== END 2020-11-23 09:23 | disposition home or self-care (01) ==
LOC: JD.ED 07:36
DX: Z03.89 Encounter for observation for other suspected diseases and conditions ruled out (principal)
CPT/HCPCS: 99282; 99283

== ENCOUNTER 2021-04-04 21:08 | Emergency (ER) | payer MEDICAID ==
--- NOTE | 2021-04-04 21:48 | EDM.PDOC ---
ED HPI GENERAL MEDICAL PROBLEM - General Chief Complaint: Genitourinary Problem Stated Complaint: POSS UTI Time Seen by Provider: 04/04/21 21:17 Source of Information: Reports: Patient, RN Notes Reviewed History Limitations: Reports: No Limitations - History of Present Illness INITIAL COMMENTS - FREE TEXT/NARRATIVE: She is a 20-year-old female presenting to the emergency department with concerns that she could possibly have urinary tract infection. She reports that over the course of last week she has had some intermittent pelvic cramping which is not currently present. She also reports bilateral low back pain which is constant. States that feels nauseous but has had no vomiting. Denies any fever or chills. She is had no abnormal vaginal discharge and denies any vaginal itching or burning.. She does have Nexplanon control which she reports was inserted 1 to 2 months ago. Reports she has had a small amount of vaginal bleeding daily since this was inserted. She has no significant dysuria when she voids but states that she feels like she has to go more but there is nothing left to go. She is concerned that she may not be emptying her bladder. Bilateral Flank Pain Score (Numeric/FACES): 4 - Related Data Allergies Allergy/AdvReac Type Severity Reaction Status Date / Time No Known Allergies Allergy Verified 04/04/21 21:29 Home Meds: Home Meds cephALEXin [Keflex] 500 mg PO QID #40 capsule 09/21/20 [Rx] Past Medical History - Past Health History Medical/Surgical History: Denies Medical/Surgical History HEENT History: Reports: Otitis Media Respiratory History: Reports: Asthma Other Respiratory History: c/o SOB, is hyperventilating VIDEO GAME ANIMATOR History: Reports: , Spontaneous , Other (See Below) Other VIDEO GAME ANIMATOR History: history of ovarian cysts Psychiatric History: Reports: ADHD, Anxiety, Depression, Panic Attack, PTSD Hematologic History: Reports: Anemia - Past Surgical History HEENT Surgical History: Reports: Oral Surgery Female Surgical History: Reports: D&C Social & Family History - Family History Family Medical History: No Pertinent Family History - Tobacco Use Tobacco Use Status *Q: Current Every Day Tobacco User Years of Tobacco use: 4 Packs/Tins Daily: 1 - Caffeine Use Caffeine Use: Reports: Soda - Living Situation & Occupation Living situation: Reports: Single Occupation: Unemployed ED ROS GENERAL - Review of Systems Review Of Systems: See Below Constitutional: Reports: No Symptoms. Denies: Fever, Chills HEENT: Reports: No Symptoms Respiratory: Reports: No Symptoms Cardiovascular: Reports: No Symptoms Endocrine: Reports: No Symptoms GI/Abdominal: Reports: Abdominal Pain (Intermittent pelvic cramping), Nausea. Denies: Vomiting : Reports: Flank Pain, Other (Feeling of having to void but not been able to do so.). Denies: Dysuria Musculoskeletal: Reports: Back Pain (Low) Skin: Reports: No Symptoms Neurological: Reports: No Symptoms Psychiatric: Reports: No Symptoms Hematologic/Lymphatic: Reports: No Symptoms Immunologic: Reports: No Symptoms ED EXAM, RENAL/ - Physical Exam Exam: See Below General Appearance: Alert, WD/WN, No Apparent Distress Respiratory/Chest: No Respiratory Distress, Lungs Clear, Normal Breath Sounds, No Accessory Muscle Use, Chest Non-Tender Cardiovascular: Normal Peripheral Pulses, Regular Rate, Rhythm, No Edema, No Gallop, No JVD, No Murmur, No Rub GI/Abdominal: Normal Bowel Sounds, Soft, Non-Tender, No Organomegaly, No Distention, No Abnormal Bruit, No Mass Back Exam: Normal Inspection, Full Range of Motion, CVA Tenderness (L). No: CVA Tenderness (R) Neurological: Alert, Oriented, CN II-XII Intact, Normal Cognition, Normal Gait, Normal Reflexes, No Motor/Sensory Deficits Psychiatric: Normal Affect, Normal Mood Skin Exam: Warm, Dry, Intact, Normal Color, No Rash Course - Vital Signs Last Recorded V/S: Last Vital Signs Temp 99.5 F 04/04/21 21:26 Pulse 71 04/04/21 21:26 Resp 18 04/04/21 21:26 BP 121/68 04/04/21 21:26 Pulse Ox 97 04/04/21 21:26 - Orders/Labs/Meds Orders: Active Orders 24 hr Category Date Time Status Bladder Scan [RC] ASDIRECTED Care 04/04/21 21:35 Active UA W/MICROSCOPIC [URIN] Stat Lab 04/04/21 21:34 Results Labs: Laboratory Tests 04/04/21 04/04/21 Range/Units 21:34 21:34 Urine Color Yellow (Yellow) Urine Appearance Clear (Clear) Urine pH 6.0 (5.0-8.0) Ur Specific [place] 1.020 (1.005-1.030) Urine Protein Negative (Negative) Urine Glucose (UA) Negative (Negative) Urine Ketones Negative (Negative) Urine Occult Blood Negative (Negative) Urine Nitrite Negative (Negative) Urine Bilirubin Negative (Negative) Urine Urobilinogen 0.2 (0.2-1.0) Ur Leukocyte Esterase Negative (Negative) Urine HCG, Qual Negative (NEGATIVE) - Re-Assessments/Exams Free Text/Narrative Re-Assessment/Exam: Patient is a 20-year-old female presenting to the emergency department with a 1 week history of intermittent pelvic cramping, low back pain, feeling of needing to void but not been able to do so. And nausea. She has had no vomiting. She is having no abdominal pain at this time. On exam, she does have some mild left-sided CVA tenderness as well as complaints of low back pain. She has no tenderness to her abdomen or pelvis. Vital signs are normal. She is afebrile. She is concerned that she may not be emptying her bladder, therefore I have ordered a bladder scan. Urine sample was collected on triage. I have ordered urinalysis and a urine hCG to be completed. 04/04/21 22:06 Urinalysis is normal with no signs of infection. hCG is negative. Bladder scan shows only 5 mils of urine in the bladder. Symptoms of intermittent pelvic cramping and nausea may be related to her Nexplanon control as she is still having daily spotting and vaginal bleeding. Recommend contacting her O B/POCKET STITCHER, Dr. Guzman on Tuesday morning to discuss her symptoms. Discussed return precautions. Discharge instructions as documented. Departure - Departure Time of Disposition: 22:06 Disposition: Home, Self-Care 01 Condition: Good Clinical Impression: Nausea, Pelvic cramping - Discharge Information *PRESCRIPTION DRUG MONITORING PROGRAM REVIEWED*: No *COPY OF PRESCRIPTION DRUG MONITORING REPORT IN PATIENT MIRTHA: No Instructions: Nausea, Adult Referrals: Lorelei Brady PA-C [Primary Care Provider] - Jailene Guzman MD [Physician] - Forms: ED Department Discharge Additional Instructions: You were seen in the emergency department today for low back pain, intermittent pelvic cramping, and nausea. Urinalysis, test, and a bladder scan were completed. Results were found to be normal. You did have a urinary tract infection, you are not , and you are not retaining urine in your bladder. As we discussed, some of the symptoms you are experiencing such as the pelvic cramping and nausea may be related to your Nexplanon control, especially given that you are still having daily vaginal bleeding. Recommend contacting your VIDEO GAME ANIMATOR, Dr. Guzman on Tuesday morning to discuss your symptoms. If you experience any new or worsening symptoms, please not hesitate to return to the emergency department for reevaluation. Sepsis Event Note (ED) - Evaluation Sepsis Screening Result: No Definite Risk - Focused Exam Vital Signs: Vital Signs Temp Pulse Resp BP Pulse Ox 04/04/21 21:26 99.5 F 71 18 121/68 97 - My Orders Last 24 Hours: My Active Orders 04/04/21 21:34 UA W/MICROSCOPIC [URIN] Stat 04/04/21 21:35 Bladder Scan [RC] ASDIRECTED - Assessment/Plan Last 24 Hours: My Active Orders 04/04/21 21:34 UA W/MICROSCOPIC [URIN] Stat 04/04/21 21:35 Bladder Scan [RC] ASDIRECTED
== END 2021-04-04 22:15 | disposition home or self-care (01) ==
LOC: JD.ED 21:08
DX: R10.2 Pelvic and perineal pain (principal); R11.0 Nausea; M54.5 Low back pain; J45.909 Unspecified asthma, uncomplicated; Z72.0 Tobacco use
CPT/HCPCS: 51798; 81001; 81025; 99283; 99284-25

== ENCOUNTER 2023-02-08 10:26 | Emergency (ER) | payer MEDICAID | END 2023-02-08 11:30 | LOC: JD.ED 10:26 | DX: Z53.21 Procedure and treatment not carried out due to patient leaving prior to being seen by health care provider (principal) | CPT/HCPCS: 81001 ==

== ENCOUNTER 2023-02-12 19:32 | Emergency (ER) | payer SELFPAY ==
[2023-02-12 20:38] LABS: CORONAVIRUS COVID-19 NAA NEGATIVE (NEGATIVE); INFLUENZA A NAA NEGATIVE (NEGATIVE)
[2023-02-12] MEDS ORDERED: Amoxicillin 400 MG/5 ML Susp 100 ML Bottle PO ONE (21:00)
== END 2023-02-12 21:35 | disposition home or self-care (01) ==
LOC: JD.ED 19:32
DX: J02.0 Streptococcal pharyngitis (principal); J45.909 Unspecified asthma, uncomplicated; Z20.822 Contact with and (suspected) exposure to COVID-19
CPT/HCPCS: 0240U; 87651; 99283; A9270